=== PATIENT | male | born 1970 | race Two or more races ===

== ENCOUNTER 2019-01-30 01:36 | Emergency (ER) | payer SELFPAY ==
[~2019-01-30] VITALS: Ht 165.1 cm; Wt 98.0 kg
--- NOTE | 2019-01-30 01:52 | NUR ---
PT. RITA GARZA BEING ESCORTED BY [employer] OFF[employer]ER. PER EMS REPORT, PATIENT WAS SHAKING AND HYPERVENTILATING. PT. C/O OF ANXIETY AND STATES THAT HE FEELS PAIN IN HIS HANDS. HE STATES THAT HE TAKES VALIDOL FOR ANXIETY. AAOX3. NO SOB. CURRENTLY NOT IN ANY DISTRESS. BREATHING EVENLY AND UNLABORED. WILL CONTINUE TO MONITOR.
[2019-01-30 02:04] VITALS: BP 117/69
--- NOTE | 2019-01-30 02:04 | NUR ---
Patient is ambulatory. Vital signs are stable. not in any apparent distress. Patient discharged to home in stable condition. Written and verbal after care instructions given. Patient verbalizes understanding of instruction.
== END 2019-01-30 02:11 | disposition home or self-care (01) ==
LOC: ER 01:36
DX: F41.9 Anxiety disorder, unspecified (principal); R06.4 Hyperventilation